=== PATIENT | female | born 1955 | race Caucasian/White ===

== ENCOUNTER → 2016-11-13 | Outpatient (CLI) | payer OTHER ==
[~2016-11-13] MED LIST: ALL DAY ALLERGY10 M2 PO; COZAAR100 MG PO; DULERA 200 MCG8.8 GM INH; ESTRACE0.5 MG PO; FLOVENT DISKUS50 MCG INH; NORCO 5-325 TA1 EACH PO; PRILOSEC OTC20 MG PO; SINGULAIR10 MG PO; SYMBICORT 160-1 INHA INH
== END ==
LOC: US 15:08
DX: M79.604 Pain in right leg (principal); M25.579 Pain in unspecified ankle and joints of unspecified foot
CPT/HCPCS: 93971

== ENCOUNTER → 2017-01-22 | Outpatient (CLI) | payer OTHER | LOC: MAMO 09:11 | DX: Z12.31 Encounter for screening mammogram for malignant neoplasm of breast (principal); Z80.3 Family history of malignant neoplasm of breast | CPT/HCPCS: G0202 ==

== ENCOUNTER → 2017-05-23 | Day surgery (SDC) | payer OTHER ==
[~2017-05-23] VITALS: Ht 149.9 cm; Wt 82.1 kg
== END | disposition home or self-care (01) ==
LOC: OR 05:50
PROVIDERS: Orthopaedic Surgery
PROC: 01N50ZZ Release Median Nerve, Open Approach (ICD-10-PCS; principal; 2017-05-23 09:30)
DX: G56.01 Carpal tunnel syndrome, right upper limb (principal); I10 Essential (primary) hypertension; J45.909 Unspecified asthma, uncomplicated; K21.9 Gastro-esophageal reflux disease without esophagitis; Z79.51 Long term (current) use of inhaled steroids; Z79.899 Other long term (current) drug therapy
CPT/HCPCS: J0690; J1100; J2250; J2405; J3010; J7120

== ENCOUNTER → 2021-05-26 | Outpatient (CLI) | payer MEDICARE, BC | LOC: HEART 5 10:48 | DX: J45.40 Moderate persistent asthma, uncomplicated (principal) | CPT/HCPCS: 94060; 95012 ==

== ENCOUNTER → 2022-03-01 | Outpatient (CLI) | payer MEDICARE, BC | LOC: KOH-I 08:00 | DX: M19.012 Primary osteoarthritis, left shoulder (principal) | CPT/HCPCS: 73200 ==

== ENCOUNTER → 2022-03-19 | Outpatient (CLI) | payer MEDICARE, BC ==
[~2022-03-19] MED LIST changes: +BREO ELLIPTA 21 EACH INH; +CALCIUM; +HYDRALAZINE HCL25 MG PO; +MULTI-VITAMIN1 EACH PO; +OZEMPIC; +PAXIL30 MG PO; +VITAMIN D3125 MCG PO
[2022-03-19 11:24] LABS: HEMOGLOBIN 14.3 gm/dl (12.3-15.3); RED BLOOD COUNT 4.93 M/UL (4.00-5.10); WHITE BLOOD COUNT 6.4 K/UL (4.5-11.0)
[2022-03-19 11:48] LABS: BUN/CREATININE RATIO 10 (0-10)
== END ==
LOC: OPSV2 10:00 → EDSTATUS 10:00 → OPSV2 10:19
PROVIDERS: Orthopaedic Surgery
DX: Z01.818 Encounter for other preprocedural examination (principal); M19.012 Primary osteoarthritis, left shoulder
CPT/HCPCS: 80048; 83036; 85025; 93005

== ENCOUNTER → 2022-03-29 | Outpatient (CLI) | payer MEDICARE, BC ==
[2022-03-29 13:24] LABS: BUN/CREATININE RATIO 19 (0-10)
== END ==
LOC: LAB 12:45
PROVIDERS: Orthopaedic Surgery
DX: Z01.812 Encounter for preprocedural laboratory examination (principal)
CPT/HCPCS: 36415; 80048; 86850; 86900; 86901